=== PATIENT | female | born 1990 | race African-American/Black ===

== ENCOUNTER 2021-09-21 02:03 | Emergency (ER) | payer SELFPAY ==
--- NOTE | 2021-09-21 02:50 | NUR ---
Patient called to be triaged but was not present in the waiting room or outside of ER
--- NOTE | 2021-09-21 03:15 | NUR ---
Patient was called to be triaged but was not present in the waiting room or outside of ER.
--- NOTE | 2021-09-21 03:30 | NUR ---
Patient was called to be triaged but was not present. PATIENT WAS NOT TRIAGED OR SEEN BY [facility].
== END 2021-09-21 03:30 | disposition left against medical advice (07) ==
LOC: ER 02:14
DX: Z53.21 Procedure and treatment not carried out due to patient leaving prior to being seen by health care provider (principal)